=== PATIENT | female | born 1990 | race Caucasian/White ===

== ENCOUNTER 2017-02-10 08:40 | Emergency (ER) | payer OTHER ==
[~2017-02-10] VITALS: Ht 162.6 cm; Wt 58.1 kg
[2017-02-10 08:51] VITALS: BP 106/63
--- NOTE | 2017-02-10 08:55 | NUR ---
Patient ambulated to bed 6 at this time.
--- NOTE | 2017-02-10 09:03 | NUR ---
PT CAME TO ER DUE TO BACK PAIN THAT STARTED A WEEK AGO;PT DENIES ANY INJURY /TRAUMA; PAIN SCALE OF 10/10 THAT RADIATES TO THE BUTTOCKS;PT STATES SHE HAS CHEST PAIN IF SHE BEND DOWN;NO MEDICAL HISTORY;PT IS AAOX4;NO ACUTE DISTRESS NOTED AT THIS TIME;SKIN IS INTACT;WARM AND DRY;UNLABORED BREATHING;STEADY GAIT;HOB ELEVATED;NEEDS ATTENDED;SAFETY MEASURES DONE;POSITION FOR COMFORT;MD MADE AWARE OF PT'S CONDITION.
--- NOTE | 2017-02-10 09:11 | NUR ---
ERMD AT BEDSIDE
[2017-02-10] MEDS ORDERED: IBUPROFEN 600 MG TAB PO ONE (09:20)
[2017-02-10] MEDS ORDERED: oxyCODONE/APAP 5/325 MG 1 TAB TAB PO ONE (09:20)
--- NOTE | 2017-02-10 10:11 | NUR ---
Patient discharged with v/s stable. Written and verbal after care instructions given and explained. Patient alert, oriented and verbalized understanding of instructions. Ambulatory with steady gait. All questions addressed prior to discharge. ID band removed. Patient advised to follow up with PMD.Opportunity to ask questions provided and answered.ADVISED PT TO REFRAIN FROM STRENOUS ACTIVITIES UNTIL PAIN SUBSIDES.
[2017-02-10 10:20] VITALS: BP 115/74
== END 2017-02-10 10:11 | disposition home or self-care (01) ==
LOC: MED 08:40
DX: N73.9 Female pelvic inflammatory disease, unspecified (principal); M54.5 Low back pain
CPT/HCPCS: 72100; 99284

== ENCOUNTER 2019-06-17 14:29 | Emergency (ER) | payer OTHER ==
[~2019-06-17] VITALS: Ht 162.6 cm; Wt 73.0 kg
[2019-06-17 14:43] VITALS: BP 120/73
--- NOTE | 2019-06-17 15:32 | NUR ---
PT PRESENTS TO ED WITH C/O INTERMITTENT RLQ PAIN THAT RADIATES TO RIGHT LOWER BACK. PT STATES PAIN IS 10/10 AT THIS TIME. PT REPORTS FREQUENCY, URGENCY AND BURNING SENSATION WHEN URINATING. REPORTS NAUSEA AND DIARRHEA. DENIES VOMITING EPISODES OR FEVER; AFEBRILE AT THIS TIME. 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
[2019-06-17] MEDS ORDERED: SULFAMETH/TRIMETH DS 800/160MG 1 TAB PO ONE (15:35)
[2019-06-17] MEDS ORDERED: PHENAZOPYRIDINE 100 MG TAB PO ONE (15:35)
--- NOTE | 2019-06-17 16:59 | NUR ---
Patient appears to be resting comfortably in bed. Vital Signs within normal limits. Respirations even and unlabored.
[2019-06-17 17:38] VITALS: BP 118/72
--- NOTE | 2019-06-17 17:38 | NUR ---
Patient discharged with v/s stable. Written and verbal after care instructions given and explained. Patient alert, oriented and verbalized understanding of instructions. Ambulatory with steady gait. All questions addressed prior to discharge. ID band removed. Patient advised to follow up with PMD. Rx of mineral oil, miralax, and bactrim antibiotic given. Patient educated on indication of medication including possible reaction and side effects. Opportunity to ask questions provided and answered.
== END 2019-06-17 17:35 | disposition home or self-care (01) ==
LOC: MED 14:29
DX: N39.0 Urinary tract infection, site not specified (principal)
CPT/HCPCS: 74018; 76856; 81002; 81025; 99284; Q0092

== ENCOUNTER 2019-10-29 14:03 | Emergency (ER) | payer OTHER ==
[~2019-10-29] VITALS: Ht 162.6 cm; Wt 68.0 kg
[2019-10-29 14:11] VITALS: BP 126/68
--- NOTE | 2019-10-29 14:17 | NUR ---
Pt taken to bed 3.
[2019-10-29] MEDS ORDERED: hydrOXYzine HCL 25 MG TAB PO ONE (15:55)
[2019-10-29] MEDS ORDERED: predniSONE 20 MG TAB PO ONE (15:55)
[2019-10-29] MEDS ORDERED: LEVOFLOXACIN 500 MG TAB PO ONE (15:55)
--- NOTE | 2019-10-29 16:21 | NUR ---
Pt moved to chair C to wait for discharge instructions.
[2019-10-29 16:28] VITALS: BP 120/70
--- NOTE | 2019-10-29 16:28 | NUR ---
Patient discharged with v/s stable. Written and verbal after care instructions given and explained. Patient alert, oriented and verbalized understanding of instructions. Ambulatory with steady gait. All questions addressed prior to discharge. ID band removed. Patient advised to follow up with PMD. Rx of Doxycycline 100mg, Promethazine DM, Erythromycin o.5% Ophthalmic given. Patient educated on indication of medication including possible reaction and side effects. Opportunity to ask questions provided and answered.
== END 2019-10-29 16:28 | disposition home or self-care (01) ==
LOC: MED 14:03
DX: H10.89 Other conjunctivitis (principal); J06.9 Acute upper respiratory infection, unspecified
CPT/HCPCS: 99283; J7512

== ENCOUNTER 2021-01-31 23:39 | Emergency (ER) | payer SELFPAY ==
[~2021-01-31] VITALS: Ht 160 cm; Wt 68.0 kg
[2021-01-31 23:51] VITALS: BP 150/120
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
[2021-02-01] MEDS ORDERED: LIDOCAINE MPF 1% 10 MG/ML VIAL INJ ONE (00:05)
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
--- NOTE | 2021-02-01 00:40 | NUR ---
PT AMBULATED WITH ASSIT TO AND FROM RESTROOM.
--- NOTE | 2021-02-01 00:40 | NUR ---
XRAY AT BEDSIDE
--- NOTE | 2021-02-01 00:45 | NUR ---
[facility] IS AT BEDSIDE
[2021-02-01 02:22] VITALS: BP 150/120
--- NOTE | 2021-02-01 02:23 | NUR ---
Patient discharged with v/s stable. Written and verbal after care instructions given and explained. Patient verbalized understanding. Ambulatory with steady gait. All questions addressed prior to discharge. Advised to follow up with PMD.
== END 2021-02-01 02:22 | disposition home or self-care (01) ==
LOC: MED 23:39
DX: S01.21XA Laceration without foreign body of nose, initial encounter (principal); S09.90XA Unspecified injury of head, initial encounter; M79.601 Pain in right arm; W22.8XXA Striking against or struck by other objects, initial encounter; Y93.89 Activity, other specified; Y92.89 Other specified places as the place of occurrence of the external cause; Y99.8 Other external cause status
CPT/HCPCS: 12001; 70450; 73130; 99284; J2001

== ENCOUNTER 2021-07-28 02:50 | Emergency (ER) | payer MEDICAID, OTHER ==
[~2021-07-28] VITALS: Ht 170.2 cm; Wt 77.6 kg
[2021-07-28 03:08] VITALS: BP 109/67
[2021-07-28 03:14] VITALS: BP 109/67
--- NOTE | 2021-07-28 03:14 | NUR ---
PT AMD W/O ASST TO ER CHAIR B PT BIB SELF C/O RT LOW FLANK/BACK PAIN X 3 DAYS. PAIN 8/10, NO TRAUMA HX-NONE MEDS-NONE NKA LMP5/19-IUD
--- NOTE | 2021-07-28 03:15 | NUR ---
DAY BYRD AT CHAIR FOR LUCHO
[2021-07-28 03:28] LABS: APPEARANCE,URINE CLEAR (CLEAR); BILIRUBIN,URINE NEGATIVE (NEGATIVE); BLOOD, URINE TRACE-I (NEGATIVE); COLOR,URINE YELLOW (YELLOW); LEUKOCYTE ESTERASE ,URINE NEGATIVE (NEGATIVE); NITRITE, URINE NEGATIVE (NEGATIVE); PH,URINE 5.5 (5.0-9.0); UGLUCOSE NEGATIVE (NEGATIVE)
--- NOTE | 2021-07-28 03:28 | NUR ---
UA DONE, HCG -
--- NOTE | 2021-07-28 03:34 | NUR ---
PT TAKEN TO CT
[2021-07-28 03:39] LABS: RBC,URINE 0-5 /HPF (0-5); WBC,URINE 0-5 /HPF (0-5)
--- NOTE | 2021-07-28 03:40 | NUR ---
PT RETURN FROM CT
--- NOTE | 2021-07-28 03:42 | NUR ---
PATIENT ELOPED FROM FACILITY. DISCHARGE INSTRUCTIONS NOT GIVEN TO PATIENT. DR. PHAM NOTIFIED.
== END 2021-07-28 03:47 | disposition left against medical advice (07) ==
LOC: MED 02:50
DX: R10.12 Left upper quadrant pain (principal)
CPT/HCPCS: 81001; 81002; 81025; 99284

== ENCOUNTER 2022-07-03 15:56 | Emergency (ER) | payer OTHER ==
[~2022-07-03] VITALS: Ht 162.6 cm; Wt 77.6 kg
[2022-07-03 16:11] VITALS: BP 120/67
[2022-07-03 18:15] LABS: BASOPHILS % (AUTO) 0.5 % (0.0-2.0); EOSINOPHILS # (AUTO) 0.1 K/uL (0-0.4); EOSINOPHILS % (AUTO) 1.1 % (0.0-4.0); HEMATOCRIT 38.4 % (36-48); HEMOGLOBIN 12.9 g/dL (12.0-16.0); MEAN CORPUSCULAR HEMOGLOBIN 31 pg (27-31); MEAN CORPUSCULAR HGB CONC 33 g/dL (33-37); MEAN CORPUSCULAR VOLUME 93.1 fL (80-94); MONOCYTES # (AUTO) 0.8 K/uL (0.8-1.0); MONOCYTES % (AUTO) 9.9 % (1.7-9.3); NEUTROPHILS # (AUTO) 4.7 K/uL (1.8-7.7); NEUTROPHILS % (AUTO) 61.5 % (42.2-75.2); PLATELET COUNT (AUTO) 187 K/uL (140-450); RED BLOOD CELL COUNT(AUTO) 4.13 MIL/uL (4.20-5.40); RED CELL DISTRIBUTION WIDTH 13.2 % (11.6-13.7); WHITE BLOOD COUNT (AUTO) 7.6 K/uL (4.8-10.8)
[2022-07-03 18:19] LABS: ALBUMIN 4.1 g/dL (3.4-5.0); CREATININE 0.9 mg/dL (0.6-1.3)
[2022-07-03 19:22] LABS: BILIRUBIN,URINE NEGATIVE (NEGATIVE); BLOOD, URINE TRACE-I (NEGATIVE); COLOR,URINE YELLOW (YELLOW); LEUKOCYTE ESTERASE ,URINE TRACE (NEGATIVE); NITRITE, URINE NEGATIVE (NEGATIVE); UGLUCOSE NEGATIVE (NEGATIVE)
[2022-07-03 19:39] LABS: APPEARANCE,URINE HAZY (CLEAR)
[2022-07-03 19:41] LABS: RBC,URINE 0-5 /HPF (0-5); WBC,URINE 0-5 /HPF (0-5)
[2022-07-03 21:55] VITALS: BP 117/62
== END 2022-07-03 22:11 | disposition home or self-care (01) ==
LOC: MED 15:56
DX: O26.891 Other specified pregnancy related conditions, first trimester (principal); Z3A.01 Less than 8 weeks gestation of pregnancy; Z90.49 Acquired absence of other specified parts of digestive tract
CPT/HCPCS: 36415; 76801; 80053; 81001; 81025; 84702; 85025; 99284; Q0092

== ENCOUNTER 2022-12-24 11:38 | Emergency (ER) | payer OTHER ==
[~2022-12-24] VITALS: Ht 165.1 cm; Wt 80.3 kg
[2022-12-24 11:45] VITALS: BP 131/84
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
[2022-12-24] MEDS ORDERED: FAMOTIDINE 20 MG TAB PO ONE (12:40)
[2022-12-24] MEDS ORDERED: ACETAMINOPHEN EXTRA STRENGTH 500 MG TAB PO ONE (12:40)
[2022-12-24 12:51] LABS: BASOPHILS % (AUTO) 0.2 % (0.0-2.0); EOSINOPHILS % (AUTO) 0.6 % (0.0-4.0); HEMATOCRIT 34.5 % (36-48); HEMOGLOBIN 11.8 g/dL (12.0-16.0); LYMPHOCYTES # (AUTO) 1.6 K/uL (2.5-16.5); LYMPHOCYTES % (AUTO) 22.9 % (20.5-51.1); MEAN CORPUSCULAR HEMOGLOBIN 33 pg (27-31); MEAN CORPUSCULAR HGB CONC 34 g/dL (33-37); MEAN CORPUSCULAR VOLUME 97.2 fL (80-94); MONOCYTES # (AUTO) 0.5 K/uL (0.8-1.0); MONOCYTES % (AUTO) 7.1 % (1.7-9.3); NEUTROPHILS # (AUTO) 4.9 K/uL (1.8-7.7); NEUTROPHILS % (AUTO) 69.2 % (42.2-75.2); PLATELET COUNT (AUTO) 171 K/uL (140-450); RED BLOOD CELL COUNT(AUTO) 3.55 MIL/uL (4.20-5.40); RED CELL DISTRIBUTION WIDTH 14.3 % (11.6-13.7); WHITE BLOOD COUNT (AUTO) 7.1 K/uL (4.8-10.8)
[2022-12-24 13:08] LABS: ALBUMIN 3.1 g/dL (3.4-5.0); ANION GAP 13.3 (8-16); ASPARTATE AMINOTRANSFERASE 24 U/L (15-37); CARBON DIOXIDE 24.4 mmol/L (21-32); CHLORIDE 104 mmol/L (98-107); CREATININE 0.5 mg/dL (0.6-1.3); GFR ARICAN-AMERICAN 182 mL/min (>90); POTASSIUM 3.7 mmol/L (3.5-5.1); SODIUM SERUM 138 mmol/L (136-145); TOTAL BILIRUBIN 0.8 mg/dL (0.0-1.0); UREA NITROGEN, BLOOD 3 mg/dL (7-18)
[2022-12-24 13:15] LABS: GLUCOSE 75 mg/dL (74-106)
[2022-12-24 13:30] LABS: APPEARANCE,URINE CLEAR (CLEAR); BILIRUBIN,URINE NEGATIVE (NEGATIVE); BLOOD, URINE NEGATIVE (NEGATIVE); COLOR,URINE YELLOW (YELLOW); LEUKOCYTE ESTERASE ,URINE NEGATIVE (NEGATIVE); NITRITE, URINE NEGATIVE (NEGATIVE); PH,URINE 6.5 (5.0-9.0); UGLUCOSE NEGATIVE (NEGATIVE)
[2022-12-24] MEDS ORDERED: ACET-2619 PO (13:52)
[2022-12-24 14:11] VITALS: BP 121/84
--- NOTE | 2022-12-24 14:20 | NUR ---
Patient discharged with v/s stable. Written and verbal after care instructions FOR NON SPECIFIC CHEST PAIN, AND ANEMIA given and explained. Patient alert, oriented and verbalized understanding of instructions. Ambulatory with steady gait. All questions addressed prior to discharge. ID band removed. Patient advised to follow up with PMD. Rx of TYLENOL given. Opportunity to ask questions provided and answered.
--- NOTE | 2022-12-24 14:21 | NUR ---
The patient's care was reviewed and supervised by Diamond Orozco RN.
== END 2022-12-24 14:20 | disposition home or self-care (01) ==
LOC: MED 11:38
DX: O99.513 Diseases of the respiratory system complicating pregnancy, third trimester (principal); O99.013 Anemia complicating pregnancy, third trimester; R07.9 Chest pain, unspecified; Z3A.29 29 weeks gestation of pregnancy
CPT/HCPCS: 36415; 80053; 81025; 84484; 85025; 93005; 99284

== ENCOUNTER 2023-03-06 14:05 | Observation (INO) | payer OTHER ==
[~2023-03-06] VITALS: Ht 165.1 cm; Wt 83.9 kg
[~2023-03-06 14:05] MED LIST: ACET-2619 PO
[2023-03-06 14:09] VITALS: BP 127/75
[2023-03-06] MEDS ORDERED: ASCO500T95 PO (14:22)
[2023-03-06] MEDS ORDERED: PRETAB PO (14:22)
[2023-03-06] MEDS ORDERED: LOPERAMIDE 2 MG CAP PO SCH (16:05)
--- NOTE | 2023-03-06 17:04 | NUR ---
PATIENT HAS BEEN SCREENED AND CATEGORIZED LOW NUTRITION RISK. PATIENT WILL BE SEEN WITHIN 7 DAYS OF ADMISSION. 03/13/23 REVIEWED BY DEANNA TREVIZO RD
[2023-03-06] MEDS ORDERED: [UNRECOGNIZED DRUG - CODE] PO (18:16)
== END 2023-03-06 18:37 | disposition home or self-care (01) ==
LOC: MLD 14:05
PROVIDERS: ADMIT Obstetrics & Gynecology; ATTEND Obstetrics & Gynecology
DX: O26.893 Other specified pregnancy related conditions, third trimester (principal); R19.7 Diarrhea, unspecified; R10.2 Pelvic and perineal pain; Z20.822 Contact with and (suspected) exposure to COVID-19; O99.891 Other specified diseases and conditions complicating pregnancy; M54.50 Low back pain, unspecified; Z3A.39 39 weeks gestation of pregnancy
CPT/HCPCS: 76805; 87426; G0378; G0379; Q0092